=== PATIENT | male | born 1970 | race Caucasian/White ===

== ENCOUNTER 2016-06-26 06:55 | Inpatient (IN) | payer MEDICARE ==
--- NOTE | ~2016-06-26 | CR181 ---
[facility] A Service of [facility] RADIOLOGY TEXT RESULTS PATIENT: YESSY REGALADO LOCATION: P1S P110-2 : 74 UNIT #: [id number] AGE: [address]: Ulysses Marsh MD SEX: M ORDER DR: [id number] [facility] [address] [facility]. [place], [place] [address] [id number] MR#: [id number] Acc #: [id number] NAME: YESSY REGALADO : 1970 SEX: M STUDY DATE/TIME: 06/26/2016 15:47 UNIT: P1S ROOM: [facility] STUDY DESCRIPTION: CR Lumbar Spine 2 or 3 Views Attending Physician: Ulysses Marsh M.D. Ordering Physician: Ulysses Marsh M.D. Primary Care Physician: Generic Doctor Not In System MEDICAL IMAGING REPORT This report is preliminary unless electronic signature is present EXAM Lumbar spine 06/26/2016 HISTORY Fall after seizure. Seizure earlier today and fell out of bed. Now has low back pain. FINDINGS AP and 1 lateral view of lumbar spine presented. Comparison 05/31/2015. 5 lumbar-type vertebral segments. Normal bony mineralization. Alignment normal. Vertebral body heights normal. Moderate narrowing L5-S1 intervertebral disc space, stable given obliquity. Facet joint relationships normal. No fracture or malalignment. Mild narrowing bilateral hip joints. Visualized bowel gas pattern normal. Visualized lower thoracic spine and ribs unremarkable. Dictated by... Michael Bobo M.D. THIS IS AN ELECTRONICALLY VERIFIED REPORT Michael Bobo M.D. at 06/27/2016 4:26 PM CÉSAR/stu TD: 06/27/2016 07:23 JOB #: [id number] MEDICAL IMAGING REPORT COPY
--- NOTE | ~2016-06-26 | PA ---
Unit #: [id number] #: [id number] Patient: YESSY REGALADO [id number] [facility] [address] [place] [address] [id number] I MR#: [id number] NAME: YESSY REGALADO ROOM: P110 Age: 46 Sex: M Admission Date: 06/26/2016 : 1970 Date of Assessment: 06/26/2016 Attending Physician: Ulysses Marsh M.D. Admitting Physician: Ulysses Marsh M.D. Primary Care Physician: Generic Doctor Not In System PSYCHIATRIC ASSESSMENT IDENTIFYING INFORMATION The patient is a 46-year-old white male well known to this facility. He is readmitted after he had presented voicing positive suicidal ideation and increasing abuse of alcohol. CHIEF COMPLAINT None given INFORMANT Chart. The patient could not be aroused for interview. HISTORY OF PRESENT ILLNESS The patient is a 46-year-old white male well known to this physician from previous admissions to this facility. He presented to this facility early on the morning of 06/26/2016 reporting that he has been drinking heavily and was concerned about a possible withdrawal seizures. His CIWA score on admission was 15. He was last discharged from this facility on 06/14/2016. He had a plan to move to [place] afterward but obviously did not do so. For more complete history of present illness please refer to previous dictated notes. PAST PSYCHIATRIC HISTORY Reviewed no changes. PAST MEDICAL HISTORY Reviewed no changes. MEDICATIONS The patient's current list of medications include: 1. Phenobarbital 2. Vistaril 3. Seroquel 4. Synthroid 5. Zestril 6. Norvasc 7. Cozaar 8. Lopressor 9. Neurontin 10. Keppra ALLERGIES Codeine, propoxyphene, butorphanol, divalproex. Unit #: [id number] #: [id number] Patient: YESSY REGALADO FAMILY HISTORY Reviewed no changes. SOCIAL HISTORY Reviewed no changes. MENTAL STATUS EXAMINATION At this time reveals the patient to be a soundly sleeping white male who cannot be aroused in spite of multiple attempts by this physician. ASSETS To be assessed. LIABLITIES Lack of resources. DIAGNOSTIC IMPRESSION 1. Alcohol use disorder 2. Bipolar disorder depressed phase. 3. Seizure disorder by history. 4. Hypothyroidism. 5. Hypertension. TREATMENT PLAN The patient will be restarted on previously prescribed medications and a routine detoxification program for alcohol has been initiated. The patient will participate in appropriate brush milieu activities with an estimate length of stay in the hospital three to five days. Dictated by... Ulysses Marsh M.D. CB/nhi TD: 06/27/2016 03:36 JOB #: [id number] PSYCHIATRIC ASSESSMENT X Ulysses Marsh MD X PSYCHIATRIC ASSESSMENT
--- NOTE | ~2016-06-26 | HP ---
Unit #: [id number] #: [id number] Patient: YESSY REGALADO [id number] [facility] [address] [place] [address] [id number] I MR#: [id number] NAME: YESSY REGALADO. ROOM: P110 Age: 46 Sex: M Admission Date: 06/26/2016 : 1970 Attending Physician: Ulysses Marsh M.D. Admitting Physician: Ulysses Marsh M.D. Primary Care Physician: Generic Doctor Not In System HISTORY AND PHYSICAL HISTORY OF PRESENT ILLNESS The patient is a 46-year-old male admitted to [facility] on 06/26/2016 for suicidal ideation and auditory hallucinations. The patient had a recent admission on 06/11/2016, where a full history and physical was completed. History and physical have been reviewed and no changes need to be made. Dictated by... Mane Larios/gz TD: 06/27/2016 08:48 JOB #: [id number] HISTORY AND PHYSICAL X SAPPHIRE GIRARD APRN HISTORY AND PHYSICAL
--- NOTE | ~2016-06-26 | DS ---
Unit #: [id number] #: [id number] Patient: YESSY REGALADO [id number] [facility] [address] [place] [address] [id number] I MR#: [id number] NAME: YESSY REGALADO. ROOM: P110 Age: 46 Sex: M Admission Date: 06/26/2016 : 1970 Discharge Date: 06/27/2016 Attending Physician: Ulysses Marsh M.D. Primary Care Physician: Generic Doctor Not In System DISCHARGE SUMMARY REASON FOR ADMISSION The patient is a 46-year-old white male, who carries diagnosis of a bipolar spectrum disorder, admitted reporting recent increase in alcohol use. HOSPITAL COURSE The patient was admitted to the [address] [place] [address] unit and placed on routine detoxification protocol for alcohol. Suicide precautions were ordered and home medications continued. The patient had several pseudoseizures during the day on 06/26/2016. On 06/27/2016, the patient requested discharge from the hospital. At that time, he was gently confronted regarding his pseudoseizures, but more to the point was confronted regarding the risks of untreated alcohol withdrawal which include genuine seizures, DTs, and . The patient insisted on discharge, denying suicidal ideation and it was so ordered, albeit, on an against medical advice basis. FINAL DIAGNOSES Alcohol use disorder; bipolar disorder, depressed phase by history; seizure disorder by history; hypertension; hypothyroidism. DISPOSITION ON DISCHARGE Given the circumstances of discharge, this physician will provide no prescriptions for medication to the patient. It is recommended that he continue phenobarbital 100 mg t.i.d. for seizure disorder, Vistaril 50 mg q.6 hours p.r.n. pain, Seroquel 400 mg at bedtime for mood stabilization, Synthroid 0.075 mg daily for hypothyroidism, Zestril 40 mg daily for hypertension, Norvasc 10 mg daily for hypertension, Cozaar 50 mg once daily for hypertension, Lopressor 100 mg b.i.d. for hypertension, Neurontin 800 mg q.i.d. for seizure disorder, Keppra 1000 mg b.i.d. for seizure disorder. DISCHARGE INSTRUCTIONS No dietary or physical restrictions were placed on the patient at the time of discharge. No followup is arranged given the circumstances of discharge. PROGNOSIS The patient's prognosis is considered fair. Dictated by... Ulysses Marsh M.D. CB/buster Unit #: [id number] #: [id number] Patient: YESSY REGALADO TD: 06/27/2016 22:17 JOB #: [id number] DISCHARGE SUMMARY X Ulysses Marsh MD X DISCHARGE SUMMARY
[~2016-06-26 06:55] MED LIST: ACIPHEX20 MG; ACIPHEX20 MG PO; ALPRAZOLAM PO; DEPAKOTE; FLEXERIL PO; IBUPROFEN; KEFLEX; KEPPRA750 MG PO; KLONOPIN; LIPITOR PO; LOPRESSOR PO; MEDROL PO; MOBIC PO; RISPERIDONE; RISPERIDONE PO; TOPAMAX; TRICOR; VICODIN; VICODIN 5/500 T1 TAB PO; WALGREENS
[2016-06-27 09:54] LABS: THYROID STIMULATING HORMONE 0.28 uIU/ml (0.34-5.60)
[2016-06-27 10:01] LABS: FREE THYROXIN (T4) 0.79 ng/dL (0.58-1.64)
[2016-06-27 10:40] LABS: ALBUMIN SERUM 3.9 g/dL (3.5-5.0); ALKALINE PHOSPHATASE 64 U/L (32-92); ALT (SGPT) 24 U/L (10-40); AST (SGOT) 21 U/L (10-42); BILIRUBIN,TOTAL 0.6 mg/dL (0.2-2.0); BLOOD UREA NITROGEN 12 mg/dL (9-23); CALCIUM SERUM 9.2 mg/dL (8.4-10.2); CARBON DIOXIDE 17 mmol/L (22-31); CHLORIDE 113 mmol/L (100-111); CREATININE SERUM 0.6 mg/dL (0.6-1.4); GLOM FILT RATE Estimated ABOVE60 mL/min (>60); GLUCOSE FASTING 87 mg/dL (70-110); POTASSIUM 4.5 mmol/L (3.5-5.1); PROTEIN TOTAL SERUM 6.5 g/dL (6.0-8.3); SODIUM 140 mmol/L (135-145)
== END 2016-06-27 17:08 | disposition home or self-care (01) | DRG 897 ==
LOC: P1S 06:55
PROVIDERS: Specialist
PROC: HZ2ZZZZ Detoxification Services for Substance Abuse Treatment (ICD-10-PCS; principal; 2016-06-26)
DX: F10.20 Alcohol dependence, uncomplicated (principal); R45.851 Suicidal ideations; F31.30 Bipolar disorder, current episode depressed, mild or moderate severity, unspecified; G40.909 Epilepsy, unspecified, not intractable, without status epilepticus; E03.9 Hypothyroidism, unspecified; I10 Essential (primary) hypertension; Z88.5 Allergy status to narcotic agent; Z88.8 Allergy status to other drugs, medicaments and biological substances
CPT/HCPCS: 72100; 80053; 80184; 84439; 84443; 86592

== ENCOUNTER 2016-08-02 17:41 | Inpatient (IN) | payer MEDICARE ==
--- NOTE | ~2016-08-02 | PA ---
Unit #: [id number] #: [id number] Patient: YESSY REGALADO [id number] [facility] [address] [place] [address] [id number] I MR#: [id number] NAME: YESSY REGALADO. ROOM: P212 Age: 46 Sex: M Admission Date: 08/02/2016 : 1970 Date of Assessment: 08/03/2016 Attending Physician: Ulysses Marsh M.D. Admitting Physician: Ulysses Marsh M.D. Primary Care Physician: Generic Doctor Not In System PSYCHIATRIC ASSESSMENT DATE 08/02/2016. IDENTIFYING INFORMATION The patient is a 46-year-old white male admitted to the [address] [place] [address] with complaints of recurrent depression and suicidal ideation. CHIEF COMPLAINT None given. INFORMANT Patient. PATIENT RELIABILITY Fair. HISTORY OF PRESENT ILLNESS The patient is a 46-year-old white male well known to this physician from multiple previous admissions to this facility. The patient reports that he recently returned to the [facility] from his home in [place] to care for his ailing mother. The patient reports that he had lost all of his medications while riding on a [employer] bus and has now been unable to find them. He has been off his medications since that time. The patient requests reinitiation of Subutex and Ativan medications, which he claims to have been taking outside of the hospital. He was reporting positive suicidal ideation at the time of admission and continues to endorse sadness and positive suicidal ideation when seen today. For a more complete history of present illness, please refer to previously dictated exam. PAST PSYCHIATRIC HISTORY Reviewed, no changes. PAST MEDICAL HISTORY Reviewed, no changes. MEDICATIONS Phenobarbital, Vistaril, Synthroid, Zestril, Norvasc, Cozaar, Lopressor, Neurontin, Keppra, Seroquel. ALLERGIES Codeine, propoxyphene, butorphanol, divalproex. FAMILY HISTORY Unit #: [id number] #: [id number] Patient: YESSY REGALADO Reviewed, no changes. SOCIAL HISTORY Reviewed, no changes. MENTAL STATUS EXAMINATION Examination at this time reveals the patient to be an obese white male appearing his stated age. He is in no apparent physical distress at the time of examination. He is awake and oriented in all spheres. His mood is mildly dysphoric. His affect constricted. Speech is generally well-coherent. There are no gross deficits in memory or cognition noted. Intelligence is judged to be in the average range based on fund of knowledge. The patient is cooperative throughout the interview. He is currently reporting positive suicidal ideation. He denies homicidal ideation and denies any psychotic symptoms. Judgment and insight appear to be reasonably intact. ASSETS AND LIABILITIES The patient's assets are to be assessed. Liabilities: Lack of resources. DIAGNOSTIC IMPRESSION 1. Alcohol use disorder. 2. Bipolar disorder, depressed. 3. Seizure disorder by history. 4. Hypothyroidism. 5. Hypertension. TREATMENT PLAN The patient remains hospitalized for safety and stabilization. I will go ahead and reinitiate a [facility] detox protocol, given the patient's alcohol history as well as his reported recent use of Ativan. ESTIMATED LENGTH OF STAY 54 to 7 days. The followup will take place through the auspices of community mental health resources. Dictated by... Ulysses Marsh M.D. MUKESH/refugio TD: 08/03/2016 13:24 JOB #: [id number] PSYCHIATRIC ASSESSMENT Page 1 of 1 X Ulysses Marsh MD X PSYCHIATRIC ASSESSMENT
--- NOTE | ~2016-08-02 | HP ---
Unit #: [id number] #: [id number] Patient: YESSY REGALADO [id number] [facility] [address] [place] [address] [id number] I MR#: [id number] NAME: YESSY REGALADO. ROOM: P212 Age: 46 Sex: M Admission Date: 08/02/2016 : 1970 Attending Physician: Ulysses Marsh M.D. Admitting Physician: Ulysses Marsh M.D. Primary Care Physician: Generic Doctor Not In System HISTORY AND PHYSICAL HISTORY OF PRESENT ILLNESS Rickie is a 46 year old admitted to [address] [place] [address] with depression and verbalizing wanting to hurt himself. He has had numerous admissions to this facility for the same. PAST MEDICAL HISTORY 1. Long history of alcohol abuse. He denies anything currently. 2. Seizure disorder. 3. High blood pressure. 4. Diabetes mellitus. 5. Hyperlipidemia. 6. Hypothyroidism. PAST SURGICAL HISTORY Right elbow ALLERGIES Napsyl, codeine, naproxen, Ketoralac. SOCIAL HISTORY Smokes one-half pack per day. He has a history of alcohol abuse but denies anything currently. He denies illicit drug use. FAMILY HISTORY Medically noncontributory. REVIEW OF SYSTEMS CONSTITUTIONAL: No fever or chills. HEENT: Denies any sore throat, ear pain or runny nose. CARDIOVASCULAR: Denies chest pain, irregular heart rhythm or palpitations. CHEST: Denies shortness of breath or cough. No hemoptysis. GASTROINTESTINAL: Denies nausea, vomiting, diarrhea or chronic constipation. ENDOCRINE: Denies history of increased thirst or urination. No recent significant weight loss or gain. GENITOURINARY: Denies dysuria, frequency, or hematuria. SKIN: Denies any rashes. HEMATOLOGIC: Denies history of increased bleeding or bruising. MUSCULOSKELETAL: Denies any hot, swollen joints. No generalized muscle pain. NEUROLOGIC: Denies problems with vision or speech. No frequent, severe Unit #: [id number] #: [id number] Patient: YESSY REGALADO headaches. No numbness, tingling or weakness in any extremities. Denies loss of bladder or bowel control. CURRENT MEDICATIONS 1. Detox protocol 2. Keppra 1000 mg b.i.d. 3. Nicotine patch 14 mg daily PHYSICAL EXAMINATION GENERAL: Alert, obese, in no apparent distress. VITAL SIGNS: Blood pressure 160/84, heart rate 60, respirations 16, temperature 98.6. WEIGHT: 210 pounds. HEIGHT: 5'7". SKIN: Warm and dry without rash or lesion. HEENT: Normocephalic. TMs not viewed. Oral and nasal passages clear. Conjunctivae clear. Pupils equal, round and reactive to light and accommodation. Extraocular movements intact. NECK: Supple without lymphadenopathy or thyromegaly. HEART: Regular rate and rhythm without murmur. LUNGS: Clear. ABDOMEN: Soft, nontender. : Not done. EXTREMITIES: No evidence of cyanosis, clubbing or edema. Moves all extremities without focal deficit. NEUROLOGICAL: Grossly within normal limits. Cranial Nerves: II: Visual mark are intact. III, IV AND : Extraocular movements are intact. Pupils are equal, round and reactive to light. V: Facial sensation is grossly normal. VII: Facial movements and expression are normal. VIII: Auditory acuity grossly intact. IX, X: Uvula is midline. Phonation is normal. XI: Patient shrugs shoulders and turns head normally. XII: Tongue protrudes in the midline. Sensory and Motor Function: Sensory and motor sensation is grossly normal. Motor: moves all extremities well. Coordination: Gait is normal. Deep Tendon Reflexes: Intact. IMPRESSION Psychiatric admission RECOMMENDATIONS PSYCHIATRIC: Per psychiatrist. MEDICAL: I see no contraindications to participating in facility's activities. MEDICAL PROGNOSIS Good. MEDICAL CONDITION Stable. Dictated by... Marisa Meek P.A.-C. for Julianna Urbina M.D. Unit #: [id number] #: [id number] Patient: YESSY REGALADO LEMUEL/nhi TD: 08/03/2016 21:12 JOB #: [id number] HISTORY AND PHYSICAL Page 1 of 1 X Marisa Meek HISTORY AND PHYSICAL
--- NOTE | ~2016-08-02 | PN ---
Unit #: [id number] #: [id number] Patient: YESSY REGALADO [id number] [facility] [address] [place] [address] [id number] MR#: [id number] NAME: YESSY REGALADO. ROOM: P212 Age: 46 Sex: M Admission Date: 08/02/2016 : 1970 Attending Physician: Ulysses Marsh M.D. Admitting Physician: Ulysses Marsh M.D. Primary Care Physician: Generic Doctor Not In System [facility] PROGRESS NOTES DATE OF SERVICE 08/04/2016 DISCUSSION The patient has been med-seeking having been denied Ativan and is demanding discharge. However, the patient did at the time of admission voice positive suicidal ideation though he is denying at this point we will watch for another day given concerns about his safety outside the hospital. Dictated by... Ulysses Marsh M.D. CB/bzg TD: 08/04/2016 13:48 JOB #: [id number] [facility] PROGRESS NOTES Page 1 of 1 X Ulysses Marsh MD X PROGRESS NOTE
--- NOTE | ~2016-08-02 | DS ---
Unit #: [id number] #: [id number] Patient: YESSY REGALADO [id number] [facility] [address] [place] [address] [id number] I MR#: [id number] NAME: YESSY REGALADO. ROOM: P212 Age: 46 Sex: M Admission Date: 08/02/2016 : 1970 Discharge Date: 08/05/2016 Attending Physician: Ulysses Marsh M.D. Primary Care Physician: Generic Doctor Not In System DISCHARGE SUMMARY REASON FOR ADMISSION The patient is a 46-year-old white male, admitted to the [address] [place] [address] voicing suicidal ideation. HOSPITAL COURSE The patient was admitted to the [address] [place] [address] and placed on routine detoxification protocol for alcohol and benzodiazepines. He became angry when he learned that he would not be able to continue his reportedly prescribed Ativan and demanded discharge on 08/04. At that point, the patient had several pseudoseizures and was placed on a 72-hour hold. By 08/05, the patient denied suicidal ideation and requested discharge. He exhibited no further pseudoseizure activity. Discharge was ordered. FINAL DIAGNOSES Alcohol use disorder, dysthymic disorder, seizure disorder by history, and hypertension. DISPOSITION ON DISCHARGE The patient is discharged on the following medications; phenobarbital 100 mg t.i.d. for seizure disorder, Vistaril 50 mg q.6 hours p.r.n. anxiety, Synthroid 0.075 mg daily for hypothyroidism, Zestril 40 mg once a day for hypertension, Norvasc 10 mg once a day for hypertension, Cozaar 50 mg once a day for hypertension, Lopressor 100 mg b.i.d. for hypertension, Neurontin 800 mg q.i.d. for chronic pain, Keppra 1000 mg b.i.d. for seizure disorder, and Seroquel 400 mg at bedtime for mood stabilization. DISCHARGE INSTRUCTIONS No dietary or physical restrictions were placed on the patient at the time of discharge. FOLLOWUP Followup will take place through the auspices of community mental health resources. PROGNOSIS The patient's prognosis remains somewhat guarded given his poor compliance treatment and ongoing abuse of alcohol. Dictated by... Ulysses Marsh M.D. CB/modl Unit #: [id number] #: [id number] Patient: YESSY REGALADO TD: 08/06/2016 05:46 JOB #: [id number] DISCHARGE SUMMARY Page 1 of 1 X Ulysses Marsh MD DISCHARGE SUMMARY
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
[2016-08-03 09:27] LABS: BASOPHIL% 0.5 % (0-2.5); EOSINOPHIL# 0.2 X10e3 (0-0.7); EOSINOPHIL% 3.3 % (0.0-7.0); HEMATOCRIT 39.4 % (38.0-50.0); HEMOGLOBIN 13.2 gm/dL (13.0-16.0); LYMPHOCYTE# 1.9 X10e3 (1.0-3.5); LYMPHOCYTE% 25.9 % (17.0-45.0); MEAN CELL VOLUME 88.2 FL (83-96); MEAN CORPUSCULAR HEMOGLOBIN 29.6 PG (28-34); MEAN CORPUSCULAR HGB CONC 33.6 g/dL (30-36); MEAN PLATELET VOLUME 8.3 FL (6.5-11.5); MONOCYTE# 0.5 X10e3 (0-1.0); MONOCYTE% 6.5 % (3.0-12.0); NEUTROPHIL# 4.7 X10e3 (1.5-7.1); NEUTROPHIL% 63.8 % (40-75); PLATELET COUNT 182 X10e3 (140-420); RED BLOOD COUNT 4.47 X10e (3.90-5.60); RED CELL DISTRIBUTION WIDTH 12.7 % (11.0-15.5); WHITE BLOOD COUNT 7.4 X10e3 (4.0-10.5)
[2016-08-03 09:29] LABS: DIFF IND NO
[2016-08-03 09:40] LABS: BILIRUBIN,TOTAL 0.4 mg/dL (0.2-2.0); BUN/CREATININE RATIO 31.66; CALCIUM SERUM 9.2 mg/dL (8.4-10.2); CREATININE SERUM 0.6 mg/dL (0.6-1.4); GLOM FILT RATE Estimated 122.3 mL/min (>60); POTASSIUM 3.5 mmol/L (3.5-5.1); PROTEIN TOTAL SERUM 6.8 g/dL (6.0-8.3)
[2016-08-04 10:31] LABS: URINE APPEARANCE CLEAR; URINE BILIRUBIN NEG (NEG); URINE BLOOD NEG (NEG); URINE COLOR YELLOW; URINE GLUCOSE NEG (NEG); URINE KETONE NEG (NEG); URINE LEUKOCYTE ESTERASE NEG (NEG); URINE NITRATE NEG (NEG); URINE PH 6.5 (5-8); URINE PROTEIN NEG (NEG)
[2016-08-04 11:18] LABS: AMPHETAMINE NEG (NEG); BARBITURATES POS (NEG); BENZODIAZEPINES POS (NEG); COCAINE NEG (NEG); MARIJUANA NEG (NEG); OPIATES NEG (NEG); TRICYCLIC ANTIDEPRESSANTS POS (NEG); U METHADONE NEG (NEG)
== END 2016-08-05 15:15 | DRG 897 ==
LOC: P2S 17:41
PROVIDERS: Specialist
PROC: HZ2ZZZZ Detoxification Services for Substance Abuse Treatment (ICD-10-PCS; principal; 2016-08-02)
DX: F10.10 Alcohol abuse, uncomplicated (principal); R45.851 Suicidal ideations; R56.9 Unspecified convulsions; F31.30 Bipolar disorder, current episode depressed, mild or moderate severity, unspecified; E03.9 Hypothyroidism, unspecified; I10 Essential (primary) hypertension; Z88.5 Allergy status to narcotic agent; Z88.8 Allergy status to other drugs, medicaments and biological substances; E11.9 Type 2 diabetes mellitus without complications; F17.210 Nicotine dependence, cigarettes, uncomplicated; S80.211A Abrasion, right knee, initial encounter; W19.XXXA Unspecified fall, initial encounter; Y92.230 Patient room in hospital as the place of occurrence of the external cause; F34.1 Dysthymic disorder; E66.9 Obesity, unspecified; Z68.32 Body mass index [BMI] 32.0-32.9, adult
CPT/HCPCS: 80053; 80307; 81003; 85025; 86592

== ENCOUNTER 2016-09-29 13:00 | Inpatient (IN) | payer MEDICARE ==
--- NOTE | ~2016-09-29 | DS ---
Unit #: [id number] #: [id number] Patient: YESSY REGALADO [id number] [facility] [address] [place] [address] [id number] I MR#: [id number] NAME: YESSY REGALADO ROOM: 85 Age: 46 Sex: M Admission Date: 09/29/2016 : 1970 Discharge Date: 10/01/2016 Attending Physician: Ulysses Marsh M.D. Primary Care Physician: Primary Care Physician No DISCHARGE SUMMARY REASON FOR ADMISSION The patient is a 46-year-old male, admitted to the [facility] unit with increased use of alcohol following the of his mother. HOSPITAL COURSE The patient is admitted to the [address] [place] [address] and placed on suicide precautions and routine detoxification protocol was ordered and the patient continued on previously prescribed home medications. The patient requested discharge on 09/30/2016 stating "I'm not through drinking." But agreed to remain in the hospital later that day. He demanded discharge and a 72-hour hold was initiated. On 10/01, the patient was contrite and denied suicidal ideation. He exhibited no signs or symptoms of withdrawal and as per his request discharge was ordered. DISCHARGE DIAGNOSES [place] I Alcohol use disorder. Mood disorder, unspecified. [place] II [place] III Seizure disorder. Hypothyroidism. Hypertension. [place] IV [place] V DISPOSITION ON DISCHARGE The patient is discharged on the following medications: 1. Phenobarbital 100 mg three times daily for seizure disorder 2. Vistaril 50 mg q.8h p.r.n. anxiety 3. Synthroid 0.075 mg daily for hypothyroidism 4. Zestril 40 mg daily for hypertension 5. Norvasc 10 mg daily for hypertension 6. Cozaar 50 mg daily for hypertension 7. Lopressor 100 mg twice daily for hypertension 8. Neurontin 800 mg four times daily for seizure disorder 9. Keppra 1000 mg twice daily for seizure disorder 10. Seroquel 400 mg at h.s. for mood stabilization No dietary or physical restrictions placed on the patient at the time of discharge, follow up to take place through the auspices of community mental health resources. Unit #: [id number] #: [id number] Patient: YESSY REGALADO PROGNOSIS The patient's prognosis is considered fair. Dictated by... Ulysses Marsh M.D. MUKESH/mo TD: 10/03/2016 07:40 JOB #: [id number] DISCHARGE SUMMARY Page 1 of 1 X Ulysses Marsh MD X DISCHARGE SUMMARY
--- NOTE | ~2016-09-29 | HP ---
Unit #: [id number] #: [id number] Patient: DALJIT REGALADO [id number] [facility] [address] [place] [address] [id number] I MR#: [id number] NAME: DALJIT REGALADO ROOM: P185 Age: 46 Sex: M Admission Date: 09/29/2016 : 1970 Attending Physician: Ulysses Marsh M.D. Admitting Physician: Ulysses Marsh M.D. Primary Care Physician: Primary Care Physician No HISTORY AND PHYSICAL HISTORY OF PRESENT ILLNESS Daljit is a 46 year old admitted to [facility] with depression and verbalizing wanting to hurt himself. He has had numerous admissions to this facility for the same. PAST MEDICAL HISTORY 1. Long history of alcohol abuse. He denies anything currently. 2. Seizure disorder. 3. High blood pressure. 4. Diabetes mellitus. 5. Hyperlipidemia. 6. Hypothyroidism. 7. COPD. PAST SURGICAL HISTORY Right elbow. ALLERGIES Napsyl, codeine, naproxen, ketorolac. SOCIAL HISTORY Smokes 1 pack per day. Has a history of alcohol abuse but denies anything currently. Denies illicit drug use. FAMILY HISTORY Medically noncontributory. REVIEW OF SYSTEMS CONSTITUTIONAL: No fever or chills. HEENT: Denies any sore throat, ear pain or runny nose. CARDIOVASCULAR: Denies chest pain, irregular heart rhythm or palpitations. CHEST: Denies shortness of breath or cough. No hemoptysis. GASTROINTESTINAL: Denies nausea, vomiting, diarrhea or chronic constipation. ENDOCRINE: Denies history of increased thirst or urination. No recent significant weight loss or gain. GENITOURINARY: Denies dysuria, frequency, or hematuria. SKIN: Denies any rashes. HEMATOLOGIC: Denies history of increased bleeding or bruising. MUSCULOSKELETAL: Denies any hot, swollen joints. No generalized muscle pain. NEUROLOGIC: Denies problems with vision or speech. No frequent, severe headaches. No numbness, tingling or weakness in any extremities. Denies Unit #: [id number] #: [id number] Patient: DALJIT REGALADO loss of bladder or bowel control. CURRENT MEDICATIONS No orders received at the time of this dictation. PHYSICAL EXAMINATION GENERAL: Alert, well-nourished, in no apparent distress. VITAL SIGNS: Blood pressure 146/92, heart rate 80, respirations 16, temperature 98.6. WEIGHT: 210. HEIGHT: 5 feet 7 inches. SKIN: Warm and dry without rash or lesion. HEENT: Normocephalic. TMs not viewed. Oral and nasal passages clear. Conjunctivae clear. PERRLA. EOMs intact. NECK: Supple without lymphadenopathy or thyromegaly. HEART: Regular rate and rhythm without murmur. LUNGS: Clear. ABDOMEN: Soft, nontender. : Not done. EXTREMITIES: No evidence of cyanosis, clubbing or edema. Moves all without focal deficit. NEUROLOGICAL: Grossly within normal limits. Cranial Nerves: II: Visual mark are intact. III, IV AND : Extraocular movements are intact. Pupils are equal, round and reactive to light. V: Facial sensation is grossly normal. VII: Facial movements and expression are normal. VIII: Auditory acuity grossly intact. IX, X: Uvula is midline. Phonation is normal. XI: Patient shrugs shoulders and turns head normally. XII: Tongue protrudes in the midline. Sensory and Motor Function: Sensory and motor sensation is grossly normal. Motor: moves all extremities well. Coordination: Gait is normal. Deep Tendon Reflexes: Intact. IMPRESSION Psychiatric admission. RECOMMENDATIONS PSYCHIATRIC: Per psychiatrist. MEDICAL: See no contraindications to participate in facility's activities. MEDICAL PROGNOSIS Good. MEDICAL CONDITION Stable. Dictated by... Marisa Meek P.A.-C. for Olivia Joseph/roe TD: 09/29/2016 18:40 JOB #: [id number] Unit #: [id number] #: [id number] Patient: DALJIT REGALADO HISTORY AND PHYSICAL Page 1 of 1 X Marisa Meek HISTORY AND PHYSICAL
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
[2016-09-30 12:22] LABS: BASOPHIL# 0.1 X10e3 (0-0.3); EOSINOPHIL# 0.3 X10e3 (0-0.7); EOSINOPHIL% 5.2 % (0.0-7.0); HEMATOCRIT 42.1 % (38.0-50.0); HEMOGLOBIN 14.1 gm/dL (13.0-16.0); LYMPHOCYTE# 1.7 X10e3 (1.0-3.5); LYMPHOCYTE% 29.7 % (17.0-45.0); MEAN CELL VOLUME 88.6 FL (83-96); MEAN CORPUSCULAR HEMOGLOBIN 29.6 PG (28-34); MEAN CORPUSCULAR HGB CONC 33.4 g/dL (30-36); MEAN PLATELET VOLUME 8.3 FL (6.5-11.5); MONOCYTE# 0.4 X10e3 (0-1.0); MONOCYTE% 6.9 % (3.0-12.0); NEUTROPHIL# 3.2 X10e3 (1.5-7.1); NEUTROPHIL% 57.2 % (40-75); PLATELET COUNT 216 X10e3 (140-420); RED BLOOD COUNT 4.75 X10e (3.90-5.60); RED CELL DISTRIBUTION WIDTH 13.4 % (11.0-15.5); WHITE BLOOD COUNT 5.7 X10e3 (4.0-10.5)
[2016-09-30 12:23] LABS: DIFF IND NO
[2016-09-30 12:50] LABS: BILIRUBIN,TOTAL 0.7 mg/dL (0.2-2.0); BUN/CREATININE RATIO 24.28; CALCIUM SERUM 9.3 mg/dL (8.4-10.2); CREATININE SERUM 0.7 mg/dL (0.6-1.4); GLOM FILT RATE Estimated 114.8 mL/min (>60); POTASSIUM 4.7 mmol/L (3.5-5.1); PROTEIN TOTAL SERUM 6.9 g/dL (6.0-8.3)
== END 2016-10-01 13:30 | disposition home or self-care (01) | DRG 897 ==
LOC: P1E 15:43
PROVIDERS: Specialist
PROC: HZ2ZZZZ Detoxification Services for Substance Abuse Treatment (ICD-10-PCS; principal; 2016-09-29)
DX: F10.20 Alcohol dependence, uncomplicated (principal); F14.20 Cocaine dependence, uncomplicated; F39 Unspecified mood [affective] disorder; I10 Essential (primary) hypertension; G40.909 Epilepsy, unspecified, not intractable, without status epilepticus; G89.29 Other chronic pain; E11.9 Type 2 diabetes mellitus without complications; E78.5 Hyperlipidemia, unspecified; E03.9 Hypothyroidism, unspecified; J44.9 Chronic obstructive pulmonary disease, unspecified; F17.210 Nicotine dependence, cigarettes, uncomplicated; Z88.5 Allergy status to narcotic agent; Z88.6 Allergy status to analgesic agent; F41.9 Anxiety disorder, unspecified
CPT/HCPCS: 80053; 85025; 86592

== ENCOUNTER 2016-10-05 15:08 | Inpatient (IN) | payer MEDICARE ==
--- NOTE | ~2016-10-05 | DS ---
Unit #: [id number] #: [id number] Patient: YESSY REGALADO [id number] [facility] [address] [place] [address] [id number] I MR#: [id number] NAME: YESSY REGALADO ROOM: 83 Age: 46 Sex: M Admission Date: 10/05/2016 : 1970 Discharge Date: 10/10/2016 Attending Physician: Ulysses Marsh M.D. Primary Care Physician: Generic Doctor Not In System DISCHARGE SUMMARY REASON FOR ADMISSION The patient is a 46-year-old white male, admitted with recurrent alcohol abuse. HOSPITAL COURSE The patient was admitted to the [facility] unit and placed on routine detoxification protocol for alcohol. All medications were continued. The patient had a couple of pseudoseizures during his brief stay in the hospital. At one point, he did complain of some chest pain and was found to have of bradycardia which led to an ER visit. The patient is stabilized without complaint. By 10/10/2016, the patient requested discharge citing a need to return his "mother's eulogies" the following day, discharge was ordered. FINAL DIAGNOSES Alcohol use disorder; mood disorder, unspecified; seizure disorder by history. DISPOSITION ON DISCHARGE The patient is discharged on the following medications: Effexor XR 225 mg daily for depression, phenobarbital 100 mg t.i.d. for seizure disorder, Vistaril 50 mg q.8 hours p.r.n. anxiety, Zestril 40 mg once daily for hypertension, Lopressor 100 mg b.i.d. for hypertension, Neurontin 800 mg q.i.d. for seizure disorder, Keppra 1000 mg b.i.d. for seizure disorder, Seroquel 400 mg at bedtime for mood stabilization, Cozaar 100 mg daily for hypertension, Norvasc 10 mg daily for hypertension, and Synthroid 0.075 mg daily for hypothyroidism. DISCHARGE INSTRUCTIONS No dietary or physical restrictions were placed upon the patient at the time of discharge. FOLLOWUP He will follow up through the auspices of [facility] mental health resources. PROGNOSIS His prognosis is considered fair. Dictated by... Ulysses Marsh M.D. Unit #: [id number] #: [id number] Patient: YESSY REGALADO CB/modl TD: 10/10/2016 15:00 JOB #: [id number] DISCHARGE SUMMARY Page 1 of 1 X Ulysses Marsh MD DISCHARGE SUMMARY
--- NOTE | ~2016-10-05 | PN ---
Unit #: [id number] #: [id number] Patient: YESSY REGALADO [id number] [facility] [address] [place] [address] [id number] I MR#: [id number] NAME: YESSY REGALADO ROOM: [facility] Age: 46 Sex: M Admission Date: 10/05/2016 : 1970 Attending Physician: Ulysses Marsh M.D. Admitting Physician: Ulysses Marsh M.D. Primary Care Physician: Generic Doctor Not In System [facility] PROGRESS NOTES DATE 10/09/2016 DISCUSSION The patient request discharge from the hospital but this morning had suffered what he described as a seizure but what staff describes is a pseudoseizure. The patient is agreeable to remain in the hospital for further observation given this episode. Dictated by... Ulysses Marsh M.D. CB/nhi TD: 10/09/2016 23:08 JOB #: [id number] [facility] PROGRESS NOTES Page 1 of 1 X Ulysses Marsh MD PROGRESS NOTE
--- NOTE | ~2016-10-05 | PN ---
Unit #: [id number] #: [id number] Patient: YESSY REGALADO [id number] [facility] [address] [place] [address] [id number] I MR#: [id number] NAME: YESSY REGALADO ROOM: [facility] Age: 46 Sex: M Admission Date: 10/05/2016 : 1970 Attending Physician: Ulysses Marsh M.D. Admitting Physician: Ulysses Marsh M.D. Primary Care Physician: [place] Doctor Not In System [facility] PROGRESS NOTES DATE 10/08/2016 DISCUSSION The patient is more active within the therapeutic milieu. His blood pressure has remained high requiring a p.r.n. dose of clonidine this morning. I will ask for a medical consult as this does seem to be related to more than simple symptoms of alcohol detox. Dictated by... Ulysses Marsh M.D. CB/roe TD: 10/08/2016 13:17 JOB #: [id number] [facility] PROGRESS NOTES Page 1 of 1 X Ulysses Marsh MD X PROGRESS NOTE
--- NOTE | ~2016-10-05 | HP ---
Unit #: [id number] #: [id number] Patient: YESSY REGALADO [id number] [facility] [address] [place] [address] [id number] I MR#: [id number] NAME: YESSY REGALADO ROOM: 83 Age: 46 Sex: M Admission Date: 10/05/2016 : 1970 Attending Physician: Ulysses Marsh M.D. Admitting Physician: Ulysses Marsh M.D. Primary Care Physician: Generic Doctor Not In System HISTORY AND PHYSICAL Rickie is a 46 year old admitted to [address] [place] [address] with depression verbalizing wanting to hurt himself. He has had numerous admissions to this facility. Patient was seen and H and P dated 09/29/16 was reviewed. This is current. No changes. Please see H and P dated 09/29/16. Dictated by... Marisa Meek P.A.-C. for Olivia Joseph/roe TD: 10/06/2016 18:09 JOB #: [id number] HISTORY AND PHYSICAL Page 1 of 1 X Marisa Meek HISTORY AND PHYSICAL
--- NOTE | ~2016-10-05 | PA ---
Unit #: [id number] #: [id number] Patient: YESSY REGALADO [id number] [facility] [address] [place] [address] [id number] MR#: [id number] NAME: YESSY REGALADO ROOM: 13 Age: 46 Sex: M Admission Date: 10/05/2016 : 1970 Date of Assessment: 10/06/2016 Attending Physician: Ulysses Marsh M.D. Admitting Physician: Ulysses Marsh M.D. Primary Care Physician: Generic Doctor Not In System PSYCHIATRIC ASSESSMENT IDENTIFYING INFORMATION The patient is a 46-year-old white male readmitted to the [address] [place] [address] unit after he had presented to this facility voicing positive suicidal ideation and alcohol abuse. INFORMANT(S) Patient. RELIABILITY Fair. CHIEF COMPLAINT None given. HISTORY OF PRESENT ILLNESS The patient is a 46-year-old white male just discharged from this facility on 10/01/2016. He returns reporting recurrent alcohol use and suicidal ideation related to the recent of his mother. He continues to complain of suicidal thinking when seen today. He complains of helplessness, low energy and reports that he has had several seizures since his discharge from the hospital. For a more complete history of present illness, please refer to previous dictated notes. PAST PSYCHIATRIC HISTORY Reviewed, no changes. FAMILY HISTORY/SOCIAL HISTORY Reviewed, no changes. MEDICAL HISTORY Reviewed, no changes. MEDICATION HISTORY 1. Phenobarbital. 2. Vistaril. 3. Synthroid. 4. Zestril. 5. Norvasc. 6. Cozaar. 7. Lopressor. 8. Neurontin. 9. Keppra. 10. Seroquel. Unit #: [id number] #: [id number] Patient: YESSY REGALADO ALLERGIES Codeine, butorphanol, divalproex, Toradol, Naprosyn, propoxyphene. MENTAL STATUS EXAM At this time, reveals the patient to be a well-developed, well-nourished white male appearing stated age. He is in no apparent physical distress at time of examination. He is awake, alert, oriented in all spheres. His mood is mildly dysphoric. His affect is congruent. Speech is generally relevant and coherent. There are no gross deficits in memory or cognition noted. Intelligence is judged to be in the average range based on fund of knowledge. The patient is cooperative throughout the interview. He is currently endorsing positive suicidal ideation. He denies homicidal ideation. He denies any psychotic symptoms. His judgement and insight appear to be reasonably intact. ASSETS AND LIABILITIES Patient's assets, motivation for change. Liabilities, lack of resources. ADMITTING DIAGNOSES 1. Alcohol use disorder. 2. Mood disorder, unspecified. 3. Seizure disorder by history. PSYCHIATRIC PLAN/TREATMENT GOALS The patient remains hospitalized for safety and stabilization. Routine detoxification protocol for alcohol is in place and we will transfer the patient to the [address] [place] [address] so that he may work on his substance abuse history as I will increase his Effexor dose to 225 mg daily as per his request given his complaints of ongoing depression. ESTIMATED LENGTH OF STAY Five to seven days. Dictated by... Ulysses Marsh M.D. MUKESH/roe TD: 10/06/2016 16:59 JOB #: [id number] PSYCHIATRIC ASSESSMENT Page 1 of 1 X Ulysses Marsh MD X PSYCHIATRIC ASSESSMENT
--- NOTE | ~2016-10-05 | EKG ---
PATIENT: YESSY REGALADO UNIT #: [id number] Ventricular Rate: 46 BPM Atrial Rate: 46 BPM P-R Interval: 172 ms QRS Duration: 104 ms Q-T Interval: 432 ms QTC Calculation(Bezet): 378 ms P [place]: 41 degrees Calculated R [place]: 52 degrees Calculated T [place]: 48 degrees Diagnosis Line: Marked sinus bradycardia Diagnosis Line: Abnormal ECG Diagnosis Line: Heart rate is significantly reduced compared to Diagnosis Line: EKG of 05/19/2014 Diagnosis Line: Confirmed by MARTINA BREWER MD ([id number]) on Diagnosis Line: 10/07/2016 4:10:33 PM INTERPRETING MD: CHAD
--- NOTE | ~2016-10-05 | PN ---
Unit #: [id number] #: [id number] Patient: YESSY REGALADO [id number] [facility] [address] [place] [address] [id number] I MR#: [id number] NAME: YESSY REGALADO ROOM: [facility] Age: 46 Sex: M Admission Date: 10/05/2016 : 1970 Attending Physician: Ulysses Marsh M.D. Admitting Physician: Ulysses Marsh M.D. Primary Care Physician: Generic Doctor Not In System [facility] PROGRESS NOTES DATE 10/07/2016 DISCUSSION The patient was sent out for medical clearance earlier today after he was complaining of some chest pain. He was medically cleared and has returned to this facility stating that he was told that his symptoms were probably related to complications of withdrawal. He is otherwise pleasant, cooperative and active within the therapeutic milieu. His detox continues. Dictated by... Ulysses Marsh M.D. CB/roe TD: 10/07/2016 18:37 JOB #: [id number] [facility] PROGRESS NOTES Page 1 of 1 X Ulysses Marsh MD X PROGRESS NOTE
== END 2016-10-10 15:35 | DRG 897 ==
LOC: P1S 16:34 → P1E 10-06 17:07
PROC: HZ2ZZZZ Detoxification Services for Substance Abuse Treatment (ICD-10-PCS; principal; 2016-10-05)
DX: F10.10 Alcohol abuse, uncomplicated (principal); R45.851 Suicidal ideations; F39 Unspecified mood [affective] disorder; G40.909 Epilepsy, unspecified, not intractable, without status epilepticus
CPT/HCPCS: 93005

== ENCOUNTER 2016-10-07 06:19 | Emergency (ER) | payer MEDICARE ==
--- NOTE | ~2016-10-07 | EKG ---
PATIENT: YESSY REGALADO UNIT #: [id number] Ventricular Rate: 58 BPM Atrial Rate: 58 BPM P-R Interval: 164 ms QRS Duration: 100 ms Q-T Interval: 404 ms QTC Calculation(Bezet): 396 ms P [place]: 30 degrees Calculated R [place]: 36 degrees Calculated T [place]: 38 degrees Diagnosis Line: Sinus bradycardia Diagnosis Line: Otherwise normal ECG Diagnosis Line: Diagnosis Line: Confirmed by MARTINA BREWER MD ([id number]) on Diagnosis Line: 10/07/2016 4:14:41 PM INTERPRETING MD: CHAD
--- NOTE | ~2016-10-07 | CR72 ---
[facility] A Service of [facility] RADIOLOGY TEXT RESULTS PATIENT: YESSY REGALADO LOCATION: JUNG : [birth year] UNIT #: [id number] AGE: [address]: Danny Solitario SEX: M ORDER DR: [id number] [facility] [address] [facility]. [place], [place] [address] [id number] MR#: [id number] Acc #: [id number] NAME: YESSY REGALADO : 1970 SEX: M STUDY DATE/TIME: 10/07/2016 7:58 UNIT: JUNG ROOM: STUDY DESCRIPTION: CR Chest Single View Portable Attending Physician: Danny Solitario Ordering Physician: Danny Solitario Primary Care Physician: Primary Care Physician No MEDICAL IMAGING REPORT This report is preliminary unless electronic signature is present EXAM AP portable chest 10/06/2016 07:58 HISTORY Chest pain this morning. 30-year smoking history. Hypertension. COMPARISON AP portable chest 06/27/2016. FINDINGS No acute airspace disease is identified. Chronic-appearing mild right infrahilar and left perihilar linear scarring. No pleural effusion or pneumothorax or acute osseous abnormalities. Normal heart size. IMPRESSION No acute cardiopulmonary findings. Dictated by... Angella Guo M.D. THIS IS AN ELECTRONICALLY VERIFIED REPORT Angella Guo M.D. at 10/07/2016 11:45 AM KAREN/stu TD: 10/07/2016 09:34 JOB #: [id number] MEDICAL IMAGING REPORT Page 1 of 1 COPY
[2016-10-07 07:55] LABS: POC - CKMB <1.0 ng/mL (0.0-7.9); POC - TROPONIN <0.05 ng/mL (<=0.05)
[2016-10-07 08:10] LABS: BASOPHIL% 0.8 % (0-2.5); EOSINOPHIL# 0.2 X10e3 (0-0.7); EOSINOPHIL% 3.6 % (0.0-7.0); HEMATOCRIT 44.8 % (38.0-50.0); LYMPHOCYTE# 1.7 X10e3 (1.0-3.5); LYMPHOCYTE% 28.4 % (17.0-45.0); MEAN CELL VOLUME 88.2 FL (83-96); MEAN CORPUSCULAR HEMOGLOBIN 29.6 PG (28-34); MEAN CORPUSCULAR HGB CONC 33.6 g/dL (30-36); MEAN PLATELET VOLUME 7.6 FL (6.5-11.5); MONOCYTE# 0.4 X10e3 (0-1.0); MONOCYTE% 7.2 % (3.0-12.0); NEUTROPHIL# 3.5 X10e3 (1.5-7.1); PLATELET COUNT 174 X10e3 (140-420); RED BLOOD COUNT 5.08 X10e (3.90-5.60); RED CELL DISTRIBUTION WIDTH 13.4 % (11.0-15.5); WHITE BLOOD COUNT 5.8 X10e3 (4.0-10.5)
[2016-10-07 08:12] LABS: DIFF IND NO
[2016-10-07 08:27] LABS: ALBUMIN SERUM 4.2 g/dL (3.5-5.0); ALKALINE PHOSPHATASE 73 U/L (32-92); ALT (SGPT) 35 U/L (10-40); AST (SGOT) 24 U/L (10-42); BILIRUBIN,TOTAL 0.4 mg/dL (0.2-2.0); BLOOD UREA NITROGEN 15 mg/dL (9-23); BUN/CREATININE RATIO 18.75; CALCIUM SERUM 9.2 mg/dL (8.4-10.2); CARBON DIOXIDE 22 mmol/L (22-31); CHLORIDE 107 mmol/L (100-111); CREATININE SERUM 0.8 mg/dL (0.6-1.4); GLOM FILT RATE Estimated 108.7 mL/min (>60); GLUCOSE FASTING 85 mg/dL (70-110); POTASSIUM 4.2 mmol/L (3.5-5.1); PROTEIN TOTAL SERUM 7.5 g/dL (6.0-8.3); SODIUM 137 mmol/L (135-145)
[2016-10-07 08:31] LABS: BILIRUBIN, DIRECT <0.1 mg/dL (0.0-0.2); BILIRUBIN,INDIRECT 0.3 mg/dL (0.0-0.9)
[2016-10-07 08:48] LABS: INR 1.1; PARTIAL THROMBOPLASTIN TIME 32.9 SECONDS (23.5-31.3); PROTHROMBIN TIME (PATIENT) 11.9 SECONDS (10.0-11.7)
[2016-10-07 08:57] LABS: POC - CKMB <1.0 ng/mL (0.0-7.9); POC - TROPONIN <0.05 ng/mL (<=0.05)
== END 2016-10-07 12:18 ==
LOC: CED 06:19
PROVIDERS: Nurse Practitioner
DX: K21.9 Gastro-esophageal reflux disease without esophagitis (principal); E78.5 Hyperlipidemia, unspecified; I10 Essential (primary) hypertension; F17.210 Nicotine dependence, cigarettes, uncomplicated; Z88.8 Allergy status to other drugs, medicaments and biological substances; Z79.899 Other long term (current) drug therapy
CPT/HCPCS: 36415; 71010; 80048; 80076; 82553; 84484; 85025; 85610; 85730; 93005; 96361; 96374; 96375; 99285; C9113; J2405

== ENCOUNTER 2016-10-25 11:00 | Inpatient (IN) | payer MEDICARE ==
--- NOTE | ~2016-10-25 | PN ---
Unit #: [id number] #: [id number] Patient: YESSY REGALADO [id number] [facility] [address] [place] [address] [id number] I MR#: [id number] NAME: YESSY REGALADO ROOM: [facility] Age: 46 Sex: M Admission Date: 10/25/2016 : 1970 Attending Physician: Ulysses Marsh M.D. Admitting Physician: Ulysses Marsh M.D. Primary Care Physician: Primary Care Physician Anabela GRAHAM PROGRESS NOTES DATE 10/29/2016 DISCUSSION The patient complains today that "the Effexor ain't working." I have explained to the patient that no medication will work as long as he is abusing alcohol and have suggested that he continue his trial of Effexor with his new found sobriety. The patient is agreeable. We are looking at probable Monday a.m. discharge. Dictated by... Ulysses Marsh M.D. MUKESH/roe TD: 10/29/2016 12:48 JOB #: [id number] [facility] PROGRESS NOTES Page 1 of 1 X Ulysses Marsh MD X PROGRESS NOTE
--- NOTE | ~2016-10-25 | PA ---
Unit #: [id number] #: [id number] Patient: YESSY REGALADO [id number] [facility] [address] [place] [address] [id number] I MR#: [id number] NAME: YESSY REGALADO ROOM: [facility] Age: 46 Sex: M Admission Date: 10/25/2016 : 1970 Date of Assessment: 10/26/2016 Attending Physician: Ulysses Marsh M.D. Admitting Physician: Ulysses Marsh M.D. Primary Care Physician: Primary Care Physician No PSYCHIATRIC ASSESSMENT IDENTIFYING INFORMATION The patient is a 46-year-old white male admitted to the [address] [place] [address] with recurrent abuse of alcohol and methamphetamine. INFORMANT(S) Patient. RELIABILITY Fair. CHIEF COMPLAINT None given. HISTORY OF PRESENT ILLNESS The patient is a 46-year-old white male well-known to this physician from multiple previous admissions to this facility. He is readmitted with recurrent abuse of alcohol and methamphetamine. The patient states that he has been living at the [facility] but hopes to go to the [facility] upon his discharge from this facility and also hopes to engage in the intensive outpatient program. The patient reported positive suicidal ideation with plan to overdose on blood pressure medications. He reports that on 10/17, he had a right nephrectomy after it was learned that he had renal cancer. The patient is currently denying suicidal or homicidal ideation but complains of severe symptoms of alcohol withdrawal as well as pain in his side related to his recent nephrectomy. For a more complete history of present illness, please refer to previous dictated notes. PAST PSYCHIATRIC HISTORY Reviewed, no changes. FAMILY HISTORY/SOCIAL HISTORY Reviewed, no changes. MEDICAL HISTORY Reviewed, no changes. MEDICATION HISTORY 1. Norvasc. 2. Neurontin. 3. Vistaril. 4. Keppra. 5. Levothyroxine. Unit #: [id number] #: [id number] Patient: YESSY REGALADO 6. Zestril. 7. Cozaar. 8. Lopressor. 9. Phenobarbital. 10. Seroquel. ALLERGIES Codeine, butorphanol, Depakote, Toradol, Naprosyn, propoxyphene. MENTAL STATUS EXAM At this time, reveals the patient to be an obese white male appearing stated age. He is in no apparent physical distress at time of examination. He is awake, alert, oriented in all spheres. His mood is mildly dysphoric. His affect congruent. Speech is generally relevant and coherent. There are no gross deficits in memory or cognition noted. Intelligence is judged to be in the average range based on fund of knowledge. The patient is cooperative throughout the interview. He is currently denying suicidal or homicidal ideation and denies any psychotic symptoms. His judgement and insight appear to be at baseline. ASSETS AND LIABILITIES Patient's assets to be assessed. Liabilities, ongoing substance use, homelessness, lack of resources. ADMITTING DIAGNOSES 1. Alcohol use disorder. 2. Bipolar disorder, depressed phase per patient history. 3. History of right nephrectomy and renal cancer. 4. Seizure disorder. 5. Hypertension. 6. Homeless. PSYCHIATRIC PLAN/TREATMENT GOALS The patient remains hospitalized for safety and stabilization. Routine detoxification protocol will be initiated. The patient will be restarted on previously prescribed medications and routine detoxification protocol for alcohol is in place. DISCHARGE PLANNING Follow up to take place through the auspices of community mental health resources. ESTIMATED LENGTH OF STAY Five to seven days. Dictated by... Ulysses Marsh M.D. MUKESH/roe TD: 10/26/2016 16:11 JOB #: [id number] Unit #: [id number] #: [id number] Patient: YESSY REGALADO PSYCHIATRIC ASSESSMENT Page 1 of 1 X Ulysses Marsh MD X PSYCHIATRIC ASSESSMENT
--- NOTE | ~2016-10-25 | CO ---
Unit #: [id number] #: [id number] Patient: YESSY REGALADO [id number] [facility] [address] [place] [address] [id number] MR#: [id number] NAME: YESSY REGALADO ROOM: [facility] Age: 46 Sex: M Admission Date: 10/25/2016 : 1970 Attending Physician: Ulysses Marsh M.D. Primary Care Physician: Primary Care Physician No Consultation Date: 10/26/2016 CONSULTATION REPORT SUBJECTIVE Rickie is a 46 year old who underwent right nephrectomy 10/14/16. Campbell are still in place along the surgical site. This area was examined and detailed in the admission H and P dated 10/26/16. Karina will be left in place to be removed by his surgeon. He knows he has follow up with the surgeon. Dictated by... Marisa Meek P.A.-C. for Olivia Joseph/roe TD: 11/03/2016 20:27 JOB #: [id number] CONSULTATION REPORT Page 1 of 1 X Marisa Meek CONSULTATION REPORT
--- NOTE | ~2016-10-25 | HP ---
Unit #: [id number] #: [id number] Patient: YESSY REGALADO [id number] [place] [address] [id number] MR#: [id number] NAME: YESSY REGALADO ROOM: P121 Age: 46 Sex: M Admission Date: 10/25/2016 : 1970 Attending Physician: Ulysses Marsh M.D. Admitting Physician: Ulysses Marsh M.D. Primary Care Physician: Primary Care Physician No HISTORY AND PHYSICAL HISTORY OF PRESENT ILLNESS Rickie is a 46 year old admitted to [address] [place] [address] because of his polysubstance abuse which includes alcohol and methamphetamine. He also reports auditory hallucinations. He has had numerous admissions to this facility. PAST MEDICAL HISTORY 1. Long history of alcohol abuse. 2. History of illicit substance abuse. 3. Seizure disorder. 4. High blood pressure. 5. Diabetes mellitus. 6. Hyperlipidemia. 7. Hypothyroidism. 8. COPD. 9. History of renal carcinoma. a. Recent right nephrectomy, 10/14/2016. Karina are still in place. PAST SURGICAL HISTORY 1. Right elbow. 2. Right nephrectomy. ALLERGIES Napsyl, codeine, naproxen, ketorolac. SOCIAL HISTORY Smokes one pack per day. Has a history of alcohol abuse and admits to illicit drug use to include methamphetamine. FAMILY HISTORY Medically noncontributory. REVIEW OF SYSTEMS CONSTITUTIONAL: No fever or chills. HEENT: Denies any sore throat, ear pain or runny nose. CARDIOVASCULAR: Denies chest pain, irregular heart rhythm or palpitations. CHEST: Denies shortness of breath or cough. No hemoptysis. GASTROINTESTINAL: Denies nausea, vomiting, diarrhea or chronic constipation. He does complain of pain along his surgical site. ENDOCRINE: Denies history of increased thirst or urination. No recent significant weight loss or gain. GENITOURINARY: Denies dysuria, frequency, or hematuria. Unit #: [id number] #: [id number] Patient: YESSY REGALADO SKIN: Denies any rashes. HEMATOLOGIC: Denies history of increased bleeding or bruising. MUSCULOSKELETAL: Denies any hot, swollen joints. No generalized muscle pain. NEUROLOGIC: Denies problems with vision or speech. No frequent, severe headaches. No numbness, tingling or weakness in any extremities. Denies loss of bladder or bowel control. CURRENT MEDICATIONS 1. Phenobarbital 100 mg t.i.d. 2. Lopressor 100 mg b.i.d. 3. Cozaar 100 mg q day 4. Milk of Magnesia p.r.n. 5. Maalox p.r.n. 6. Tylenol p.r.n. 7. Vistaril p.r.n. 8. Detox protocol 9. Keppra 1000 mg b.i.d. 10. Seroquel 400 mg q.h.s. 11. Zestril 40 mg q day (the patient tells me that his ibm bpm developer discontinued this. 12. Norvasc 10 mg q day. PHYSICAL EXAMINATION GENERAL: Alert, well-nourished, in no apparent distress. VITAL SIGNS: Blood pressure 180/86, heart rate 96, respirations 16, temperature 98.6. WEIGHT: 204 pounds. HEIGHT: 5'7". SKIN: Warm and dry without rash or lesion. HEENT: Normocephalic. TMs not viewed. Oral and nasal passages clear. Conjunctivae clear. Pupils equal, round and reactive to light and accommodation. Extraocular movements intact. NECK: Supple without lymphadenopathy or thyromegaly. HEART: Regular rate and rhythm without murmur. LUNGS: Clear. ABDOMEN: Soft with minimal tenderness along surgical site. Karina are in place and there is very good skin approximation. There is no increased redness, swelling, heat or put noted. The wound is clean and dry. : Not done. EXTREMITIES: No evidence of cyanosis, clubbing or edema. Moves all extremities without focal deficit. NEUROLOGICAL: Grossly within normal limits. Cranial Nerves: II: Visual mark are intact. III, IV AND : Extraocular movements are intact. Pupils are equal, round and reactive to light. V: Facial sensation is grossly normal. VII: Facial movements and expression are normal. VIII: Auditory acuity grossly intact. IX, X: Uvula is midline. Phonation is normal. XI: Patient shrugs shoulders and turns head normally. XII: Tongue protrudes in the midline. Sensory and Motor Function: Sensory and motor sensation is grossly normal. Motor: moves all extremities well. Coordination: Gait is normal. Deep Tendon Reflexes: Intact. IMPRESSION 1. Psychiatric admission. 2. Recent diagnosis of renal carcinoma. a. Right nephrectomy 10/14/2016. Unit #: [id number] #: [id number] Patient: YESSY REGALADO RECOMMENDATIONS PSYCHIATRIC: Per psychiatrist. MEDICAL: 1. I see no contraindications to participating in facility's activities. 2. DC Zestril 40 mg q day and decrease Lopressor to 25 mg b.i.d. MEDICAL PROGNOSIS Good. MEDICAL CONDITION Stable. Dictated by... Marisa Meek PMattiA.-C. for Olivia Joseph/nhi TD: 10/26/2016 19:44 JOB #: [id number] HISTORY AND PHYSICAL Page 1 of 1 X Marisa Meek X HISTORY AND PHYSICAL
--- NOTE | ~2016-10-25 | PN ---
Unit #: [id number] #: [id number] Patient: YESSY REGALADO [id number] [facility] [address] [place] [address] [id number] I MR#: [id number] NAME: YESSY REGALADO ROOM: P121 Age: 46 Sex: M Admission Date: 10/25/2016 : 1970 Attending Physician: Ulysses Marsh M.D. Admitting Physician: Ulysses Marsh M.D. Primary Care Physician: Primary Care Physician Anabela GRAHAM PROGRESS NOTES DATE 10/27/2016 DISCUSSION The patient continues to complain of severe nausea as well as lightheadedness related to ongoing symptoms of alcohol withdrawal. He is continuing to complain of severe incisional pain and I will start Ultram 50 mg. He agrees to remain in the hospital for further treatment. Dictated by... Ulysses Marsh M.D. CB/roe TD: 10/27/2016 15:47 JOB #: [id number] [facility] PROGRESS NOTES Page 1 of 1 X lUysses Marsh MD PROGRESS NOTE
--- NOTE | ~2016-10-25 | DS ---
Unit #: [id number] #: [id number] Patient: YESSY REGALADO [id number] [facility] [address] [place] [address] [id number] I MR#: [id number] NAME: YESSY REGALADO ROOM: P121 Age: 46 Sex: M Admission Date: 10/25/2016 : 1970 Discharge Date: 10/31/2016 Attending Physician: Ulysses Marsh M.D. Primary Care Physician: Primary Care Physician No DISCHARGE SUMMARY REASON FOR ADMISSION The patient is a 46-year-old white male admitted with recurrence of alcohol use. HOSPITAL COURSE The patient was admitted to the [address] [place] [address] unit and placed on a routine detoxification protocol for alcohol and medications were continued. The patient's prescribed opioid pain medication was discontinued and he was begun on Ultram as he had undergone his surgeries some 10 days prior to admission to the hospital. He continued to push for reinitiation of opioids but without success. By 10/31 the patient requested discharge as he stated it was time for him to have his [place] removed from his nephrectomy scar. Discharge was ordered. DISCHARGE DIAGNOSES 1. Alcohol use disorder. 2. Bipolar disorder most recent episode depressed. 3. Status post nephrectomy. 4. Seizure disorder. 5. Hypertension. DISPOSITION ON DISCHARGE The patient is discharged on the following medications: 1. Neurontin 800 mg four times daily for chronic pain. 2. Vistaril 50 mg q. 8 hours p.r.n. anxiety. 3. Keppra 1000 mg twice daily for seizure disorder. 4. Cozaar 100 mg twice daily for hypertension. 5. Phenobarbital 100 mg three times daily for seizure disorder. 6. Seroquel 400 mg at bedtime for mood stabilization. 7. Effexor XR 150 mg q.a.m. for depression. 8. Lopressor 25 mg twice daily for hypertension. 9. Norvasc 10 mg once daily for hypertension. DIET AND ACTIVITY No dietary or physical restrictions were placed upon the patient at the time of discharge. Followup to take place through the auspices of community mental health resources. The patient's prognosis remains guarded. Unit #: [id number] #: [id number] Patient: YESSY REGALADO Dictated by... Ulysses Marsh M.D. CB/nhi TD: 10/31/2016 02:36 JOB #: [id number] DISCHARGE SUMMARY Page 1 of 1 X Ulysses Marsh MD DISCHARGE SUMMARY
--- NOTE | ~2016-10-25 | PN ---
Unit #: [id number] #: [id number] Patient: YESSY REGALADO [id number] [facility] [address] [place] [address] [id number] I MR#: [id number] NAME: YESSY REGALADO ROOM: P121 Age: 46 Sex: M Admission Date: 10/25/2016 : 1970 Attending Physician: Ulysses Marsh M.D. Admitting Physician: Ulysses Marsh M.D. Primary Care Physician: Primary Care Physician Anabela GRAHAM PROGRESS NOTES DATE 10/28/2016 DISCUSSION The patient seems more appropriately future oriented during today's interview and is active within the therapeutic milieu. We continue current treatment and look for discharge most likely on Monday with the patient stating a wish to begin treatment in the intensive outpatient program at that time. Dictated by... Ulysses Marsh M.D. CB/roe TD: 10/28/2016 20:53 JOB #: [id number] [facility] PROGRESS NOTES Page 1 of 1 X Ulysses Marsh MD X PROGRESS NOTE
== END 2016-10-31 12:29 | disposition home or self-care (01) | DRG 897 ==
LOC: P1S 19:09
PROC: HZ2ZZZZ Detoxification Services for Substance Abuse Treatment (ICD-10-PCS; principal; 2016-10-25)
DX: F10.10 Alcohol abuse, uncomplicated (principal); F31.9 Bipolar disorder, unspecified; I10 Essential (primary) hypertension; G40.909 Epilepsy, unspecified, not intractable, without status epilepticus; Z59.0 Homelessness; Z85.528 Personal history of other malignant neoplasm of kidney; Z90.5 Acquired absence of kidney; Z88.5 Allergy status to narcotic agent; Z88.8 Allergy status to other drugs, medicaments and biological substances; E11.9 Type 2 diabetes mellitus without complications; E78.5 Hyperlipidemia, unspecified; J44.9 Chronic obstructive pulmonary disease, unspecified; E03.9 Hypothyroidism, unspecified; F15.10 Other stimulant abuse, uncomplicated; F17.210 Nicotine dependence, cigarettes, uncomplicated
CPT/HCPCS: 80184; J2550